=== PATIENT | female | born 1955 | race African-American/Black ===

== ENCOUNTER 2021-03-21 13:04 | Emergency (ER) | payer OTHER ==
[2021-03-21] MEDS ORDERED: KETOROLAC 60 MG/2 ML INJ IM ONE (13:26)
[2021-03-21] MEDS ORDERED: HYDROcodone/ACETAMINOPHEN 5-325 MG TAB PO ONE (13:26)
[2021-03-21] MEDS ORDERED: dexAMETHasone 20 MG/5 ML VIAL IM ONE (13:26)
--- NOTE | 2021-03-21 13:55 | Emergency Department Report ---
ED Back Pain/Injury HPI - General Chief Complaint: Pain General Stated Complaint: RIGHT SIDED PAIN AND DISCOMFORT Time Seen by Provider: 03/21/21 13:17 Source: patient, family Limitations: Other - History of Present Illness Initial Comments: pt is a 66-year-old female presents emergency room complaints of right lower back pain that radiates down her right leg that began 3 weeks ago. She states that she also gets a burning sensation in her right leg. She denies any fall or injury. She denies any leg swelling or calf pain. She denies any numbness, weakness, bowel or bladder incontinence, fever, chills, nausea, vomiting, diarrhea, abdominal pain, chest pain, shortness of breath, urinary symptoms. She has a past medical history of hypertension, she states that she sees her primary care physician every 3 months. She denies any history of diabetes, CKD, or GI bleeding. No allergies to medications. - Related Data Previous Rx's Medication Instructions Recorded Last Taken Type Gabapentin 100 mg PO Q8HR #21 capsule 03/21/21 Unknown Rx Meloxicam [Mobic] 7.5 mg PO QDAY #14 tablet 03/21/21 Unknown Rx Menthol/Camphor [[place] 1 applicatio TP BID #18 oint...g. 03/21/21 Unknown Rx Ointment] methOCARBAMOL [Robaxin TAB] 500 mg PO BID PRN #20 tab 03/21/21 Unknown Rx Allergies Allergy/AdvReac Type Severity Reaction Status Date / Time No Known Allergies Allergy Unverified 09/16/14 12:09 ED Review of Systems ROS: Stated complaint: RIGHT SIDED PAIN AND DISCOMFORT Other details as noted in HPI Comment: All other systems reviewed and negative ED Past Medical Hx - Medications Home Medications: Home Medications Medication Instructions Recorded Confirmed Last Taken Type Gabapentin 100 mg PO Q8HR #21 capsule 03/21/21 Unknown Rx Meloxicam [Mobic] 7.5 mg PO QDAY #14 tablet 03/21/21 Unknown Rx Menthol/Camphor [[place] 1 applicatio TP BID #18 oint...g. 03/21/21 Unknown Rx Ointment] methOCARBAMOL [Robaxin TAB] 500 mg PO BID PRN #20 tab 03/21/21 Unknown Rx ED Physical Exam - General Limitations: Other General appearance: alert, in no apparent distress - Head Head exam: Present: atraumatic, normocephalic - Eye Eye exam: Present: normal appearance - ENT ENT exam: Present: mucous membranes moist - Neck Neck exam: Present: normal inspection, full ROM. Absent: tenderness, meningismus - Respiratory Respiratory exam: Present: normal lung sounds bilaterally. Absent: respiratory distress, wheezes, rales, rhonchi, stridor, chest wall tenderness, accessory muscle use, decreased breath sounds, prolonged expiratory - Cardiovascular Cardiovascular Exam: Present: regular rate, normal rhythm, normal heart sounds. Absent: systolic murmur, diastolic murmur, rubs, gallop - Extremities Exam Extremities exam: Present: normal inspection, full ROM, other (2+ distal pulses RLE, no skin changes, sensation intact). Absent: tenderness, pedal edema, calf tenderness - Back Exam Back exam: Present: normal inspection, full ROM, paraspinal tenderness (right lumbar paraspinal ttp, no midline C-spine, T-spine or L-spine ttp, no step offs, no deformities). Absent: vertebral tenderness - Neurological Exam Neurological exam: Present: alert, oriented X3, CN II-XII intact, normal gait. Absent: motor sensory deficit - Psychiatric Psychiatric exam: Present: normal affect, normal mood - Skin Skin exam: Present: warm, dry, intact ED Course Vital Signs 03/21/21 03/21/21 03/21/21 13:10 14:05 14:06 Temperature 97.5 F L Pulse Rate 65 Respiratory 16 18 18 Rate Blood Pressure 100/66 Blood Pressure [Left] O2 Sat by Pulse 96 Oximetry 03/21/21 14:16 Temperature 97.9 F Pulse Rate 61 Respiratory 15 Rate Blood Pressure Blood Pressure 100/49 [Left] O2 Sat by Pulse 96 Oximetry ED Medical Decision Making - Medical Decision Making pt is a 66-year-old female presents emergency room complaints of right lower back pain that radiates down her right leg that began 3 weeks ago. She states that she also gets a burning sensation in her right leg. She denies any fall or injury. She denies any leg swelling or calf pain. She denies any numbness, weakness, bowel or bladder incontinence, fever, chills, nausea, vomiting, diarrhea, abdominal pain, chest pain, shortness of breath, urinary symptoms. She has a past medical history of hypertension, she states that she sees her primary care physician every 3 months. She denies any history of diabetes, CKD, or GI bleeding. No allergies to medications. Vitals are normal. On exam:rig ht lumbar paraspinal ttp, no midline C-spine, T-spine or L-spine ttp, no step offs, no deformities, no focal neuro deficit. Symptoms and examination appear likely consistent with sciatica versus lumbar radiculopathy. Patient has no red flag warning signs of back pain, no trauma, no unexplained weight loss, no neuro deficits, no fever, no IV drug use, no steroid use, no history of cancer. Patient given medications while in the emergency room and with improvement of her symptoms. Patient given prescription for medications. Patient will be referred to primary care and neurosurgery. Advised patient Please use medication as prescribed. Follow-up with your primary care doctor. 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 Return to emergency room for any new or worsening symptoms. Critical care attestation.: If time is entered above; I have spent that time in minutes in the direct care of this critically ill patient, excluding procedure time. ED Disposition Clinical Impression: Back pain Qualifiers: Back pain location: low back pain Chronicity: acute Back pain laterality: right Sciatica presence: with sciatica Sciatica laterality: sciatica of right side Qualified Code(s): M54.41 - Lumbago with sciatica, right side Disposition: 01 HOME / SELF CARE / HOMELESS Is pt being admited?: No Does the pt Need Aspirin: No Condition: Stable Instructions: Sciatica Additional Instructions: Please use medication as prescribed. Follow-up with your primary care doctor. 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 Return to emergency room for any new or worsening symptoms. Prescriptions: Gabapentin 100 mg PO Q8HR #21 capsule Meloxicam [Mobic] 7.5 mg PO QDAY #14 tablet methOCARBAMOL [Robaxin TAB] 500 mg PO BID PRN #20 tab PRN Reason: muscle spasm/pain Menthol/Camphor [[place] Ointment] 1 applicatio TP BID #18 oint...g. Referrals: MARIBELL MAY II, MD [Staff Physician] - 3-5 Days your, primary care doctor [Other] - 3-5 Days Time of Disposition: 13:53 Print Language: [id number]
[2021-03-21 14:17] VITALS: BP 100/49
== END 2021-03-21 14:16 | disposition home or self-care (01) ==
LOC: ED 13:04
DX: M54.50 Low back pain, unspecified (principal); Z79.899 Other long term (current) drug therapy
CPT/HCPCS: 96372; 99282; J1100; J1885